=== PATIENT | female | born 1945 | race Caucasian/White ===

== ENCOUNTER 2024-07-13 14:16 | Inpatient (IN) | payer MEDICARE, OTHER ==
[~2024-07-13] VITALS: Ht 152.4 cm; Wt 49.9 kg
[2024-07-13 15:16] LABS: BASOPHILS # (AUTO) 0.1 K/UL (0.0-0.2); EOSINOPHILS # (AUTO) 0.1 K/uL (0.0-0.7); EOSINOPHILS % (AUTO) 1.2 % (0.0-7.0); HEMATOCRIT 32.6 % (31.2-41.9); HEMOGLOBIN 10.9 g/dL (10.9-14.3); LYMPHOCYTES # (AUTO) 3.2 K/uL (0.8-4.8); LYMPHOCYTES % (AUTO) 34.8 % (20.5-51.5); MEAN CORPUSCULAR HEMOGLOBIN 29.9 uug (24.7-32.8); MEAN CORPUSCULAR HGB CONC 33 g/dL (32.3-35.6); MEAN CORPUSCULAR VOLUME 89.7 fL (75.5-95.3); MONOCYTES # (AUTO) 0.5 K/uL (0.1-1.30); MONOCYTES % (AUTO) 5.7 % (0.0-11.0); NEUTROPHILS # (AUTO) 5.2 K/uL (1.8-8.9); NEUTROPHILS % (AUTO) 57.3 % (38.5-71.5); PLATELET COUNT (AUTO) 210 K/uL (179-408); RED BLOOD CELL COUNT(AUTO) 3.64 MIL/uL (3.63-4.92); WHITE BLOOD COUNT (AUTO) 9.1 K/uL (3.8-11.8)
[2024-07-13 15:17] LABS: DIFFERENTIAL COMMENT 1
[2024-07-13 15:24] LABS: CALCIUM 8.9 mg/dL (8.5-10.1); CARBON DIOXIDE 25 mmol/L (21-32); CHLORIDE 104 mmol/L (98-107); CREATININE 1.4 mg/dL (0.6-1.3); GLUCOSE 161 mg/dL (74-106); POTASSIUM 4.3 mmol/L (3.5-5.1); SODIUM SERUM 139 mmol/L (136-145); UREA NITROGEN, BLOOD 29 mg/dL (7-18)
[2024-07-13 16:09] LABS: MAGNESIUM 2.3 mg/dL (1.8-2.4)
[2024-07-13 16:42] LABS: THYROID STIMULATING HORMONE 3.536 mIU/mL (0.358-3.740)
[2024-07-13 18:45] LABS: *BILIRUBIN,URIN NEGATIVE (NEGATIVE); *BLOOD, URINE NEGATIVE (NEGATIVE); *CLARITY,URINE CLEAR (CLEAR); *COLOR,URINE YELLOW (YELLOW); *KETONES,URINE NEGATIVE (NEGATIVE); *PROTEIN,URINE NEGATIVE (NEGATIVE); *UROBILINOGEN,URINE 0.2 E.U./dl (NORMAL); LEUKOCYTE ESTERASE ,URINE NEGATIVE (NEGATIVE); NITRITE, URINE NEGATIVE (NEGATIVE); UGLUCOSE NEGATIVE (NEGATIVE)
[2024-07-13] MEDS ORDERED: ONDANSETRON 4 MG/2 ML VIAL IV PRN (21:45)
[2024-07-13] MEDS ORDERED: ACETAMINOPHEN 325 MG TABLET PO PRN (21:45)
[2024-07-13] MEDS ORDERED: hydrALAZINE HCL 25 MG TABLET PO PRN (21:45)
[2024-07-14] MEDS ORDERED: hydrALAZINE HCL 25 MG TABLET PO PRN ×2 (05:15→06:30)
[2024-07-14 07:00] VITALS: BP 149/70; TEMP 97.9; O2SAT 97
[2024-07-14 08:00] VITALS: BP 148/73; TEMP 97.5; O2SAT 97
[2024-07-14 08:02] VITALS: BP 142/82; TEMP 97.6; O2SAT 97
[2024-07-14] MEDS: PANTOPRAZOLE SODIUM 40 MG TABLET.DR PO SCH (08:46)
[2024-07-14] MEDS: IV 1/2NS 1000 ML 1,000 ML IV PRN (08:47)
[2024-07-14 09:02] LABS: BASOPHILS # (AUTO) 0.1 K/UL (0.0-0.2); BASOPHILS % (AUTO) 0.6 % (0.0-2.0); EOSINOPHILS # (AUTO) 0.1 K/uL (0.0-0.7); EOSINOPHILS % (AUTO) 1.1 % (0.0-7.0); HEMATOCRIT 34.2 % (31.2-41.9); HEMOGLOBIN 11.4 g/dL (10.9-14.3); LYMPHOCYTES # (AUTO) 2.8 K/uL (0.8-4.8); MEAN CORPUSCULAR HEMOGLOBIN 29.8 uug (24.7-32.8); MEAN CORPUSCULAR HGB CONC 33 g/dL (32.3-35.6); MEAN CORPUSCULAR VOLUME 89.5 fL (75.5-95.3); MONOCYTES # (AUTO) 0.4 K/uL (0.1-1.30); MONOCYTES % (AUTO) 4.7 % (0.0-11.0); NEUTROPHILS # (AUTO) 5.1 K/uL (1.8-8.9); NEUTROPHILS % (AUTO) 60.6 % (38.5-71.5); PLATELET COUNT (AUTO) 208 K/uL (179-408); RED BLOOD CELL COUNT(AUTO) 3.82 MIL/uL (3.63-4.92); RED CELL DISTRIBUTION WIDTH 15.2 % (12.3-17.7); WHITE BLOOD COUNT (AUTO) 8.4 K/uL (3.8-11.8)
[2024-07-14 09:05] LABS: DIFFERENTIAL COMMENT 1
[2024-07-14 09:35] LABS: ALANINE AMINOTRANSFERASE 31 U/L (14-59); ALBUMIN 3.7 g/dL (3.4-5.0); ALKALINE PHOSPHATASE 116 U/L (50-136); ASPARTATE AMINOTRANSFERASE 33 U/L (15-37); BILIRUBIN,TOTAL 0.9 mg/dL (0.2-1.0); CALCIUM 8.7 mg/dL (8.5-10.1); CARBON DIOXIDE 23 mmol/L (21-32); CHLORIDE 104 mmol/L (98-107); CHOLESTEROL 182 mg/dL (<200); CREATININE 1.2 mg/dL (0.6-1.3); GLUCOSE 159 mg/dL (74-106); HDL CHOLESTEROL 69 mg/dL (40-60); MAGNESIUM 2.2 mg/dL (1.8-2.4); PHOSPHOROUS 3.6 mg/dL (2.5-4.9); SODIUM SERUM 139 mmol/L (136-145); TOTAL PROTEIN, SERUM 8.5 g/dL (6.4-8.2); TRIGLYCERIDES 86 MG/DL (30-150); UREA NITROGEN, BLOOD 27 mg/dL (7-18)
[2024-07-14 12:00] VITALS: BP 131/67; TEMP 97.6; O2SAT 97
[2024-07-14 16:00] VITALS: BP 131/67; TEMP 97.7; O2SAT 97
[2024-07-14 19:00] VITALS: BP 154/83; TEMP 98.2; O2SAT 100
[2024-07-14] MEDS: DOCUSATE SODIUM 100 MG CAPSULE PO SCH (20:43)
[2024-07-14] MEDS ORDERED: DOCUSATE SODIUM 100 MG CAPSULE PO SCH (21:00)
[2024-07-14] MEDS ORDERED: DOCUSATE SODIUM 250 MG CAPSULE PO SCH (21:00)
[2024-07-14] MEDS ORDERED: LORAZEPAM 2 MG/1 ML VIAL IV PRN (23:30)
[2024-07-15] MEDS ORDERED: LORAZEPAM 2 MG/1 ML VIAL IM PRN (01:00)
[2024-07-15 06:00] VITALS: BP 118/60; TEMP 98.6; O2SAT 96
[2024-07-15] MEDS ORDERED: DEXTROSE 50% 50 ML DISP.SYRIN IV PRN (09:30)
[2024-07-15] MEDS ORDERED: PANT40TA49 PO (09:37)
[2024-07-15] MEDS ORDERED: ALLO100T PO (09:37)
[2024-07-15] MEDS ORDERED: GLIP5TAB13 PO (09:37)
[2024-07-15] MEDS ORDERED: CARB1TAB21 PO (09:39)
[2024-07-15] MEDS ORDERED: FURO20TA4 PO (09:39)
[2024-07-15] MEDS ORDERED: ROSU10TA2 PO (09:39)
[2024-07-15] MEDS ORDERED: CLOP75TA33 PO (09:39)
[2024-07-15] MEDS ORDERED: GABA-532 PO (09:39)
[2024-07-15] MEDS ORDERED: SITA100T PO (09:41)
[2024-07-15] MEDS ORDERED: LINA145C PO (09:41)
[2024-07-15] MEDS ORDERED: METO25TA6 PO (09:41)
[2024-07-15] MEDS: GABAPENTIN 100 MG CAPSULE PO SCH (10:56)
[2024-07-15] MEDS: CLOPIDOGREL 75 MG TABLET PO SCH (10:56)
[2024-07-15 12:00] VITALS: BP 97/40; TEMP 97.9; O2SAT 95
[2024-07-15] MEDS: BLOOD SUGAR DIAGNOSTIC 1 EACH STRIP VI SCH (12:05)
[2024-07-15 12:24] VITALS: BP 140/50; TEMP 98.6; O2SAT 100
[2024-07-15 15:59] VITALS: BP 117/54; TEMP 97.9; O2SAT 100
[2024-07-15] MEDS: METOPROLOL TARTRATE 25 MG TABLET PO SCH (17:00)
[2024-07-15 19:00] VITALS: BP_SYST 101; BP_SYST 159; BP_DIAS 45; BP_DIAS 78; TEMP 97.6; TEMP 98.4; O2SAT 96; O2SAT 98
[2024-07-15] MEDS: ATORVASTATIN 20 MG TABLET PO SCH (20:56)
[2024-07-15] MEDS ORDERED: Medication Not On Formulary EA (Rosuvastatin Calcium (Crestor) 10 MG) PO SCH (21:00)
[2024-07-16 06:17] VITALS: BP 173/68; TEMP 97.8; O2SAT 98
[2024-07-16] MEDS ORDERED: PANTOPRAZOLE SODIUM 40 MG TABLET.DR PO SCH (07:30)
[2024-07-16 08:26] VITALS: BP 143/69; TEMP 97.3; O2SAT 97
[2024-07-16] MEDS: CARBIDOPA/LEVODOPA 25-100MG TABLET PO SCH (08:53)
[2024-07-16] MEDS ORDERED: Medication Not On Formulary EA (Sitagliptin Phosphate (Januvia) 100 MG) PO SCH (09:00)
[2024-07-16] MEDS: ALLOPURINOL 100 MG TABLET PO SCH (09:40)
[2024-07-16] MEDS: FUROSEMIDE 20 MG TABLET PO SCH (09:40)
[2024-07-16] MEDS ORDERED: EMPA25TA PO (10:09)
[2024-07-16 10:23] LABS: BASOPHILS % (AUTO) 0.5 % (0.0-2.0); EOSINOPHILS # (AUTO) 0.2 K/uL (0.0-0.7); EOSINOPHILS % (AUTO) 2.2 % (0.0-7.0); HEMOGLOBIN 10.8 g/dL (10.9-14.3); LYMPHOCYTES # (AUTO) 2.7 K/uL (0.8-4.8); LYMPHOCYTES % (AUTO) 37.1 % (20.5-51.5); MEAN CORPUSCULAR HEMOGLOBIN 29.9 uug (24.7-32.8); MEAN CORPUSCULAR HGB CONC 34 g/dL (32.3-35.6); MEAN CORPUSCULAR VOLUME 89.1 fL (75.5-95.3); MONOCYTES # (AUTO) 0.3 K/uL (0.1-1.30); MONOCYTES % (AUTO) 4.6 % (0.0-11.0); NEUTROPHILS % (AUTO) 55.6 % (38.5-71.5); PLATELET COUNT (AUTO) 211 K/uL (179-408); RED BLOOD CELL COUNT(AUTO) 3.59 MIL/uL (3.63-4.92); WHITE BLOOD COUNT (AUTO) 7.2 K/uL (3.8-11.8)
[2024-07-16 10:25] LABS: DIFFERENTIAL COMMENT 1
[2024-07-16 10:44] LABS: ALANINE AMINOTRANSFERASE 22 U/L (14-59); ALBUMIN 3.2 g/dL (3.4-5.0); ALKALINE PHOSPHATASE 96 U/L (50-136); ASPARTATE AMINOTRANSFERASE 24 U/L (15-37); BILIRUBIN,TOTAL 0.8 mg/dL (0.2-1.0); CALCIUM 8.5 mg/dL (8.5-10.1); CARBON DIOXIDE 22 mmol/L (21-32); CHLORIDE 108 mmol/L (98-107); CREATININE 1.2 mg/dL (0.6-1.3); GLUCOSE 130 mg/dL (74-106); MAGNESIUM 2.2 mg/dL (1.8-2.4); PHOSPHOROUS 3.5 mg/dL (2.5-4.9); POTASSIUM 4.2 mmol/L (3.5-5.1); SODIUM SERUM 142 mmol/L (136-145); TOTAL PROTEIN, SERUM 7.1 g/dL (6.4-8.2); UREA NITROGEN, BLOOD 19 mg/dL (7-18)
[2024-07-16 11:06] VITALS: BP 127/64; TEMP 98; O2SAT 97
[2024-07-16] MEDS: INSULIN REGULAR, HUMAN 1000 UNIT/10 ML VIAL SQ PRN (11:56)
== END 2024-07-16 16:35 | DRG 683 ==
LOC: ER 14:25 → MEDSURG3 17:00 → ER 07-14 06:26
PROVIDERS: ADMIT Internal Medicine; ATTEND Internal Medicine
DX: N17.0 Acute kidney failure with tubular necrosis (principal); G93.40 Encephalopathy, unspecified; Z95.1 Presence of aortocoronary bypass graft; E11.9 Type 2 diabetes mellitus without complications; G20.A1 Parkinson's disease without dyskinesia, without mention of fluctuations; F02.80 Dementia in other diseases classified elsewhere, unspecified severity, without behavioral disturbance, psychotic disturbance, mood disturbance, and anxiety; I25.10 Atherosclerotic heart disease of native coronary artery without angina pectoris
CPT/HCPCS: 36415; 70450; 71045; 83735; 84100; 84443; 84484; 85025; G0378; J1815; J8499